=== PATIENT | male | born 1970 | race Caucasian/White ===

== ENCOUNTER 2016-12-04 17:34 | Observation (INO) | payer BC ==
[~2016-12-04] VITALS: Ht 182.9 cm; Wt 91.4 kg
[~2016-12-04 17:34] MED LIST: BENZ2 PO; CLON.5 PO; CLON1 PO; LITH150C7 PO; LITH300 PO; LOXA10 PO; LOXA5 PO; QUET200 PO; SERO300T PO
[2016-12-04 17:35] VITALS: BP 171/95; PULSE 64; RESP 18; TEMP 98.8; O2SAT 100
--- NOTE | 2016-12-04 17:47 | PD ---
Physical Exam Date Seen by Provider: Dec 04, 2016 Time Seen by Provider: 17:45 Narrative 46 YOWM C/O CP , ABD PAIN AND SOB TIMES 4 MONTHS WORSE FOR 2 WEEKS. NO MEDICAL PROBLEMS. H/O BIPOLAR. SEEN FH NSB FOR THE SAME 11/19/16 VS REVIEWED WAITING FOR BED PLACEMENT Data Data Last Documented VS Vital Signs Date Time Temp Pulse Resp B/P Pulse Ox O2 Delivery O2 Flow Rate FiO2 12/04/16 17:35 98.8 64 18 171/95 100 Room Air MDM Supervised Visit with JACKIE: Tye Rodriguez Dec 04, 2016 17:47
[2016-12-04] MEDS ORDERED: SODIUM CHLORID 0.9% 500 ML INJ 500 ML IV ONE (20:45)
[2016-12-04] MEDS ORDERED: LITH300T3 PO (21:01)
[2016-12-04] MEDS ORDERED: ZIPR1CAP12 PO (21:02)
[2016-12-04 21:05] VITALS: BP 143/86; PULSE 70; RESP 18; O2SAT 100
--- NOTE | 2016-12-04 21:07 | PD ---
HPI Chief Complaint: Chest Pain Time Seen by Provider: 20:37 Travel History International Travel<30 days: No Contact w/Intl Traveler<30days: No Traveled to known affect area: No History of Present Illness HPI patient c/o palpitations over last 4 days, along with continuous cp ,6/10, sharp , worse with movement, denies sob/n/v/d/hobson at this point....no alleviating factors. PFSH Past Medical History Asthma: No Anxiety: Yes (X 2 WEEKS) Cancer: No Cardiovascular Problems: No Diabetes: No Diminished Hearing: No Endocrine: No Genitourinary: No Immune Disorder: No Musculoskeletal: No Neurologic: No Psychiatric: Yes (BIPOLAR) Reproductive: No Respiratory: No Social History Alcohol Use: No Tobacco Use: No Substance Use: No Allergies-Medications (Allergen,Severity, Reaction): Coded Allergies: No Known Allergies (Unverified , 12/04/16) Reported Meds & Prescriptions Reported Meds & Active Scripts Active Reported Ziprasidone 80 Mg Cap 80 Mg PO DAILY [place] Carbonate 300 Mg Tab 300 Mg PO BID Review of Systems Except as stated in HPI: all other systems reviewed are Neg Cardiovascular: Positive: Chest Pain or Discomfort, Palpitations Physical Exam Narrative GENERAL: SKIN: Warm and dry. HEAD: Atraumatic. Normocephalic. EYES: Pupils equal and round. No scleral icterus. No injection or drainage. ENT: No nasal bleeding or discharge. Mucous membranes pink and moist. NECK: Trachea midline. No JVD. CARDIOVASCULAR: Regular rate and rhythm. RESPIRATORY: No accessory muscle use. Clear to auscultation. Breath sounds equal bilaterally. GASTROINTESTINAL: Abdomen soft, non-tender, nondistended. Hepatic and splenic margins not palpable. MUSCULOSKELETAL: Extremities without clubbing, cyanosis, or edema. No obvious deformities. complete reproducible chest sensation with chest palpation NEUROLOGICAL: Awake and alert. No obvious cranial nerve deficits. Motor grossly within normal limits. Five out of 5 muscle strength in the arms and legs. Normal speech. PSYCHIATRIC: Appropriate mood and affect; insight and judgment normal. Data Data Last Documented VS Orders Orders Electrocardiogram (12/04/16 17:47) B-Type Natriuretic Peptide (12/04/16 20:38) Complete Blood Count With Diff (12/04/16 20:38) Comprehensive Metabolic Panel (12/04/16 20:38) Prothrombin Time / Inr (Pt) (12/04/16 20:38) Act Partial Throm Time (Ptt) (12/04/16 20:38) Troponin I (12/04/16 20:38) Chest, Single Ap (12/04/16 20:38) Ecg Monitoring (12/04/16 20:38) Bilateral Bp Monitoring (12/04/16 20:38) Iv Access Insert/Monitor (12/04/16 20:38) Oximetry (12/04/16 20:38) Oxygen Administration (12/04/16 20:38) Sodium Chlorid 0.9% 500 Ml Inj (Ns 500 M (12/04/16 20:45) Drug Screen, Random Urine (12/04/16 20:38) Alcohol (Ethanol) (12/04/16 20:38) Salicylates (Aspirin) (12/04/16 20:38) Tylenol (Acetaminophen) (12/04/16 20:38) Ct Abd/Pel W/O Iv Contrast (12/04/16 23:03) Hydromorphone Pf Inj (Dilaudid Pf Inj) (12/04/16 23:15) Admit Order (Ed Use Only) (12/04/16 23:53) Labs Laboratory Tests Test 12/04/16 21:08 12/04/16 21:20 White Blood Count 11.6 TH/MM3 Red Blood Count 4.89 MIL/MM3 Hemoglobin 14.7 GM/DL Hematocrit 42.8 % Mean Corpuscular Volume 87.5 FL Mean Corpuscular Hemoglobin 30.2 PG Mean Corpuscular Hemoglobin Concent 34.5 % Red Cell Distribution Width 13.2 % Platelet Count 247 TH/MM3 Mean Platelet Volume 7.6 FL Neutrophils (%) (Auto) 69.3 % Lymphocytes (%) (Auto) 22.1 % Monocytes (%) (Auto) 6.8 % Eosinophils (%) (Auto) 1.4 % Basophils (%) (Auto) 0.4 % Neutrophils # (Auto) 8.0 TH/MM3 Lymphocytes # (Auto) 2.6 TH/MM3 Monocytes # (Auto) 0.8 TH/MM3 Eosinophils # (Auto) 0.2 TH/MM3 Basophils # (Auto) 0.0 TH/MM3 CBC Comment DIFF FINAL Differential Comment Prothrombin Time 10.6 SEC Prothromb Time International Ratio 1.0 RATIO Activated Partial Thromboplast Time 23.9 SEC Blood Urea Nitrogen 17 MG/DL Creatinine 1.33 MG/DL Random Glucose 97 MG/DL Total Protein 7.4 GM/DL Albumin 4.0 GM/DL Calcium Level 9.2 MG/DL Alkaline Phosphatase 64 U/L Aspartate Amino Transf (AST/SGOT) 14 U/L Alanine Aminotransferase (ALT/SGPT) 21 U/L Total Bilirubin 0.5 MG/DL Sodium Level 139 MEQ/L Potassium Level 3.9 MEQ/L Chloride Level 105 MEQ/L Carbon Dioxide Level 25.7 MEQ/L Anion Gap 8 MEQ/L Estimat Glomerular Filtration Rate 58 ML/MIN Troponin I LESS THAN 0.02 NG/ML B-Type Natriuretic Peptide 5 PG/ML Salicylates Level LESS THAN 1.7 MG/DL Acetaminophen Level LESS THAN 2.0 MCG/ML Ethyl Alcohol Level LESS THAN 3 MG/DL Urine Opiates Screen NEG Urine Barbiturates Screen NEG Urine Amphetamines Screen NEG Urine Benzodiazepines Screen NEG Urine Cocaine Screen NEG Urine Cannabinoids Screen NEG MDM Medical Decision Making Medical Screen Exam Complete: Yes Emergency Medical Condition: Yes Medical Record Reviewed: Yes Differential Diagnosis STEMI V NONSTEMI V PNA V ATYPICAL CP Narrative Course PATIENT LABS WERE WNL, CXR NONDIAGNOSTIC...PT WILL BE ADMITTED FOR CHEST PAIN CENTER. Diagnosis Primary Impression: Chest pain, atypical Additional Impression: Palpitations Admitting Information Admitting Physician Requests: Observation Scripts Pantoprazole (Protonix) 40 Mg Tab 40 MG PO DAILY for Reflux, #30 TAB 0 Refills Prov: Jay Cheek 12/05/16 Favian Strong MD Dec 04, 2016 21:07
--- NOTE | 2016-12-04 21:31 | RADRPT ---
EXAM DATE/TIME: 12/04/2016 20:48 [facility] COMPARISON: No previous studies available for comparison. INDICATIONS : Heart palpitations, chest pain and shortness of breath. MEDICAL HISTORY : None. SURGICAL HISTORY : None. ENCOUNTER: Initial ACUITY: 2 weeks PAIN SCORE: 10/10 LOCATION: Bilateral chest FINDINGS: A single view of the chest demonstrates the lungs to be symmetrically aerated without evidence of mas s, infiltrate or effusion. The cardiomediastinal contours are unremarkable. Osseous structures are intact. CONCLUSION: No acute disease. Good Haile MD on December 04, 2016 at 21:29 Board Certified Radiologist. This report was verified electronically.
[2016-12-04 21:50] LABS: BASOPHIL % 0.4 % (0.0-2.0); EOSINOPHIL # 0.2 TH/MM3 (0-0.4); EOSINOPHIL % 1.4 % (0.0-4.0); HEMATOCRIT 42.8 % (39.0-51.0); HEMO FLAGS DIFF FINAL; LYMPH % 22.1 % (9.0-44.0); LYMPHOCYTE # 2.6 TH/MM3 (1.0-4.8); MEAN CELL VOLUME 87.5 FL (80.0-100.0); MEAN CORPUSCULAR HEMOGLOBIN 30.2 PG (27.0-34.0); MEAN CORPUSCULAR HGB CONC 34.5 % (32.0-36.0); MONO % 6.8 % (0.0-8.0); NEUT % 69.3 % (16.0-70.0); PLATELET COUNT 247 TH/MM3 (150-450); RED BLOOD COUNT 4.89 MIL/MM3 (4.50-5.90); RED CELL DISTRIBUTION WIDTH 13.2 % (11.6-17.2); WHITE BLOOD COUNT 11.6 TH/MM3 (4.0-11.0)
[2016-12-04 21:56] LABS: APTT (PATIENT) 23.9 SEC (24.3-30.1); PROTHROMBIN TIME - PATIENT 10.6 SEC (9.8-11.6)
[2016-12-04 21:58] LABS: ANION GAP 8 MEQ/L (5-15); AST (GOT) 14 U/L (15-37); BICARBONATE 25.7 MEQ/L (21.0-32.0); BLOOD UREA NITROGEN 17 MG/DL (7-18); CHLORIDE 105 MEQ/L (98-107); GLOMERULAR FILTRATION RATE 58 ML/MIN (>89); POTASSIUM 3.9 MEQ/L (3.5-5.1); SODIUM (NA) 139 MEQ/L (136-145)
[2016-12-04 21:59] LABS: ALT (GPT) 21 U/L (12-78)
[2016-12-04 22:02] LABS: ALCOHOL LESS THAN 3 MG/DL (0-5)
[2016-12-04 22:03] LABS: ALKALINE PHOSPHATASE 64 U/L (45-117); TOTAL BILIRUBIN ADULT 0.5 MG/DL (0.2-1.0)
[2016-12-04 22:08] LABS: ACETAMINOPHEN LESS THAN 2.0 MCG/ML (10.0-30.0)
[2016-12-04 23:15] VITALS: BP 144/87; PULSE 64; RESP 16; O2SAT 100
[2016-12-04] MEDS ORDERED: HYDROmorphone HCL PF 1 MG/ML VIAL IV PUSH ONE (23:15)
--- NOTE | 2016-12-04 23:40 | RADRPT ---
EXAM DATE/TIME: 12/04/2016 23:16 [facility] COMPARISON: No previous studies available for comparison. INDICATIONS : Bilateral lower quadrant pain. ORAL CONTRAST: No oral contrast ingested. RADIATION DOSE: 9.96 CTDIvol (mGy) MEDICAL HISTORY : None SURGICAL HISTORY : None. ENCOUNTER: Initial ACUITY: 2 days PAIN SCALE: 6/10 LOCATION: Bilateral lower quadrant TECHNIQUE: Volumetric scanning of the abdomen and pelvis was performed. Using automated exposure control and ad justment of the mA and/or kV according to patient size, radiation dose was kept as low as reasonably achievable to obtain optimal diagnostic quality images. DICOM format image data is available electro nically for review and comparison. FINDINGS: LOWER LUNGS: The visualized lower lungs are clear. LIVER: Homogeneous density without lesion for noncontrast technique. There is no dilation of the biliary tr ee. No calcified gallstones. SPLEEN: Normal size without lesion. PANCREAS: Within normal limits. KIDNEYS: Normal in size and shape. There is no mass, stone, or hydronephrosis. ADRENAL GLANDS: Within normal limits. VASCULAR: There is no aortic aneurysm. BOWEL/MESENTERY: No dilated loops of small or large bowel. The appendix is identified in the right lower quadrant has a normal configuration. No evidence of free fluid. ABDOMINAL WALL: Small fat containing umbilical hernia. RETROPERITONEUM: There is no lymphadenopathy. BLADDER: Mildly distended. No wall thickening or mass. REPRODUCTIVE: Within normal limits. INGUINAL: There is no lymphadenopathy or hernia. MUSCULOSKELETAL: Within normal limits for patient age. CONCLUSION: Negative noncontrast CT abdomen/pelvis. Armando Welsh MD on December 04, 2016 at 23:37 Board Certified Radiologist. This report was verified electronically.
[2016-12-05] VITALS: BP 175/95; PULSE 56; RESP 20; O2SAT 100
[2016-12-05] MEDS ORDERED: ENOXAPARIN SODIUM 30 MG/0.3 ML SYRINGE SQ SCH
[2016-12-05] MEDS ORDERED: MORPHINE SULFATE 4 MG/ML INJ IV PRN
[2016-12-05] MEDS ORDERED: ONDANSETRON HCL 4 MG/2 ML VIAL IV PRN
[2016-12-05] MEDS ORDERED: NITROGLYCERIN 0.4 MG SL 25 TABS/BTL SL PRN
[2016-12-05 00:03] VITALS: O2SAT 100
[2016-12-05] MEDS: SODIUM CHLOR 0.9% 1000 ML INJ 1,000 ML IV SCH ×2 (01:42→10:43)
[2016-12-05 01:59] LABS: CREATINE KINASE 50 U/L (39-308)
[2016-12-05 02:00] VITALS: BP 166/90; PULSE 60; RESP 18; O2SAT 98
[2016-12-05 04:00] VITALS: BP 143/86; PULSE 60; RESP 19; O2SAT 96
[2016-12-05 05:31] VITALS: BP 155/90; PULSE 64; RESP 18; O2SAT 98
[2016-12-05 06:06] LABS: CREATINE KINASE 49 U/L (39-308)
[2016-12-05 07:10] VITALS: BP 151/96; PULSE 68; RESP 21; O2SAT 98
[2016-12-05] MEDS ORDERED: ASPIRIN 325 MG TAB PO SCH (09:00)
[2016-12-05] MEDS ORDERED: LITHIUM CARBONATE 300 MG TAB PO SCH (10:00)
[2016-12-05] MEDS ORDERED: ZIPRASIDONE HCL 80 MG CAP PO SCH (10:00)
[2016-12-05] MEDS ORDERED: PROT40TA PO (11:35)
--- NOTE | 2016-12-05 11:36 | HHI.DCPOC ---
Discharge Care Plan Diagnosis: (1) Chest pain, atypical (2) GERD (gastroesophageal reflux disease) (3) Bipolar disorder Goals to Promote Your Health * To prevent worsening of your condition and complications * To maintain your health at the optimal level Directions to Meet Your Goals Take your medications as prescribed Follow your dietary instruction Follow activity as directed Keep your appointments as scheduled Take your immunizations and boosters as scheduled If your symptoms worsen call your PCP, if no PCP go to Urgent Care Center or Emergency Room Smoking is Dangerous to Your Health. Avoid second hand smoke Call the 24-hour hour crisis hotline for domestic abuse at Jay Cheek Dec 05, 2016 11:36
--- NOTE | 2016-12-05 14:51 | TR ---
Date Performed: 12/05/2016 Time Performed: 10:53:25 DOCTOR: Adonis Arteaga DRUG LIST: CLINICAL HISTORY: REASON FOR TEST: REASON FOR ENDING: OBSERVATION: CONCLUSION: Maykel protocol performed, test stopped when target heart rate reached secondary to l eg fatigue. No reproduc chest discomfort. No ST segment changes to suggest ischemia. No ectopy. Recov ered quickly, BP and HR at baseline.Maximum FZ=387 Target HR Achieved=87.0% Maximum BA=425/84 Total E xercise Time=5:01 COMMENTS: Conclusion: Normal treadmill exercise. No evidence of ischemia.
--- NOTE | 2016-12-05 14:59 | EKG ---
Date Performed: 12/05/2016 Time Performed: 05:25:00 PTAGE: 46 years EKG: Sinus rhythm MODERATE INTRAVENTRICULAR CONDUCTION DELAY BORDERLINE ECG PREVIOUS TRACING : 12/05/2016 01.10 Since previous tracing, no significant change noted DOCTOR: Adonis Arteaga Interpretating Date/Time 12/06/2016 08:10:19
--- NOTE | 2016-12-05 15:04 | EKG ---
Date Performed: 12/05/2016 Time Performed: 01:10:21 PTAGE: 46 years EKG: SINUS BRADYCARDIA LEFT POSTERIOR FASCICULAR BLOCK NONSPECIFIC ST & T-WAVE ABNORMALITY ABNOR MAL ECG PREVIOUS TRACING : 12/05/2016 01.09 Since previous tracing, no significant change noted DOCTOR: Adonis Arteaga Interpretating Date/Time 12/05/2016 15:02:39
--- NOTE | 2016-12-05 15:14 | EKG ---
Date Performed: 12/04/2016 Time Performed: 18:05:21 PTAGE: 46 years EKG: Sinus rhythm MODERATE INTRAVENTRICULAR CONDUCTION DELAY BORDERLINE ECG PREVIOUS TRACING : 11/04/2011 20.15 Since previous tracing, no significant change noted DOCTOR: Adonis Arteaga Interpretating Date/Time 12/05/2016 15:13:30
--- NOTE | 2016-12-05 15:20 | HHI.HP ---
[facility] Primary Care Physician Sly Georges MD Chief Complaint Chest pain History of Present Illness This is a 46-year-old male that presents to the ED with a complaint of 4 months of intermittent chest pressure. He states that over the last couple weeks it has become more frequent. He states he estimates that this occurred at least on her times a day each lasting about a minute. Occasional shortness of breath and diaphoresis. Denies nausea. He has not discussed this discomfort with his PCP. Currently feeling okay. Denies recent illness. Denies recent travel. Voices compliance with his bipolar medications. States is a lifetime nonsmoker. Review of Systems General: Patient denies fevers, chills recent, and recent travel HEENT: Patient denies headache, sore throat, difficulty swallowing. Cardiovascular: Has the chest discomfort as mentioned above. Denies sensation of heart beating rapidly or irregularly. No syncope. Occasional diaphoresis. Respiratory: Occasional shortness of breath. Denies inspirational chest discomfort. Denies coughing wheezing or hemoptysis. GI: Patient denies nausea, vomiting, diarrhea, abdominal pain, bloody stools. Musculoskeletal: Patient denies joint pain or edema. Denies calf pain or edema. Neurovascular: Patient denies numbness, tingling, weakness in extremities. Denies headache. Endocrine: Denies polyuria and polydipsia. Hematologic: Denies easy bruising. Skin: Denies rash or itching. Past Family Social History Allergies: Coded Allergies: No Known Allergies (Unverified , 12/04/16) Past Medical History Bipolar disorder. Denies hypertension, hyperlipidemia, diabetes, and CAD. Past Surgical History Noncontributory. Reported Medications Reported Meds & Active Scripts Active Protonix (Pantoprazole Sodium) 40 Mg Tab 40 Mg PO DAILY Reported Ziprasidone 80 Mg Cap 80 Mg PO DAILY [place] Carbonate 300 Mg Tab 300 Mg PO BID Family History Denies family history of CAD. Social History States he is a lifetime nonsmoker. Denies alcohol or drug abuse. Physical Exam Vital Signs Vital Signs Date Time Temp Pulse Resp B/P Pulse Ox O2 Delivery O2 Flow Rate FiO2 12/05/16 07:10 68 21 151/96 98 Room Air 12/05/16 05:31 64 18 155/90 98 Room Air 12/05/16 04:00 60 19 143/86 96 Room Air 12/05/16 02:00 60 18 166/90 98 Room Air 12/05/16 00:03 100 12/05/16 00:00 56 20 175/95 100 Room Air 12/04/16 23:15 64 16 144/87 100 Room Air 12/04/16 21:05 100 Room Air 12/04/16 21:05 70 18 143/86 100 Room Air 12/04/16 21:05 100 Room Air 12/04/16 17:35 98.8 64 18 171/95 100 Room Air Physical Exam GENERAL: This is a well-nourished, well-developed patient, in no apparent distress. Patient speaks in clear complete sentences. Patient is pleasant. HEENT: Head is atraumatic and normocephalic. Neck is supple without lymphadenopathy and trachea is midline. No JVD or carotid bruits. CARDIOVASCULAR: Regular rate and rhythm without murmurs, gallops, or rubs. RESPIRATORY: Clear to auscultation. Breath sounds equal bilaterally. No wheezes , rales, or rhonchi. Chest wall is tender. No use of accessory muscles. GASTROINTESTINAL: Abdomen is nontender, nondistended. Abdomen soft. No obvious pulsatile mass or bruit. No CVA tenderness. Strong femoral pulses bilaterally. Normal bowel sounds in all quadrants. MUSCULOSKELETAL: Patient is moving upper and lower extremities freely. No calf tenderness or edema, no Homans sign. Strong pulses in upper and lower extremities. NEUROLOGICAL: Patient is alert and oriented. Cranial nerves 2-12 are grossly intact. No focal deficits and speech is clear. SKIN: No rash and turgor is normal. Laboratory Laboratory Tests Test 12/04/16 12/04/16 12/05/16 12/05/16 21:08 21:20 01:15 05:02 White Blood Count 11.6 Red Blood Count 4.89 Hemoglobin 14.7 Hematocrit 42.8 Mean Corpuscular Volume 87.5 Mean Corpuscular Hemoglobin 30.2 Mean Corpuscular Hemoglobin 34.5 Concent Red Cell Distribution Width 13.2 Platelet Count 247 Mean Platelet Volume 7.6 Neutrophils (%) (Auto) 69.3 Lymphocytes (%) (Auto) 22.1 Monocytes (%) (Auto) 6.8 Eosinophils (%) (Auto) 1.4 Basophils (%) (Auto) 0.4 Neutrophils # (Auto) 8.0 Lymphocytes # (Auto) 2.6 Monocytes # (Auto) 0.8 Eosinophils # (Auto) 0.2 Basophils # (Auto) 0.0 CBC Comment DIFF FINAL Differential Comment Prothrombin Time 10.6 Prothromb Time International 1.0 Ratio Activated Partial 23.9 Thromboplast Time Sodium Level 139 Potassium Level 3.9 Chloride Level 105 Carbon Dioxide Level 25.7 Anion Gap 8 Blood Urea Nitrogen 17 Creatinine 1.33 Estimat Glomerular Filtration 58 Rate Random Glucose 97 Calcium Level 9.2 Total Bilirubin 0.5 Aspartate Amino Transf 14 (AST/SGOT) Alanine Aminotransferase 21 (ALT/SGPT) Alkaline Phosphatase 64 Troponin I LESS THAN 0.02 LESS THAN 0.02 LESS THAN 0.02 B-Type Natriuretic Peptide 5 Total Protein 7.4 Albumin 4.0 Salicylates Level LESS THAN 1.7 Acetaminophen Level LESS THAN 2.0 Ethyl Alcohol Level LESS THAN 3 Urine Opiates Screen NEG Urine Barbiturates Screen NEG Urine Amphetamines Screen NEG Urine Benzodiazepines Screen NEG Urine Cocaine Screen NEG Urine Cannabinoids Screen NEG Total Creatine Kinase 50 49 Result Diagram: 12/04/16210712/04/162107 Imaging Last 24 hours Impressions Abdomen/Pelvis CT 12/04/162302 Signed Impressions: Service Date/Time: Sunday, December 04, 2016 23:16 - CONCLUSION: Negative noncontrast CT abdomen/pelvis. Armando Welsh MD Chest X-Ray 12/04/162037 Signed Impressions: Service Date/Time: Sunday, December 04, 2016 20:48 - CONCLUSION: No acute disease. Good Haile MD Course EKGs have sinus rhythm without significant ST segment depressions or elevations. Assessment and Plan Assessment and Plan * Atypical chest pain: Patient had serial cardiac enzymes and EKGs for ruling out purposes. He was seen by Dr. Arteaga of cardiology in the chest pain center and had a nonischemic Maykel protocol ETT. He'll be discharged home with instructions to follow-up with PCP. * Bipolar disorder: Continue current medication. Patient is stable at this time. He is agreeable to this plan. Jay Cheek Dec 05, 2016 15:20
== END 2016-12-05 12:59 | disposition home or self-care (01) ==
LOC: NEPC 17:34 → NEDA 23:54 → NEDH 12-05 03:54 → NEPHCDU 12-05 09:55
PROVIDERS: ADMIT Internal Medicine Cardiovascular Disease; ATTEND Internal Medicine Cardiovascular Disease
DX: R07.89 Other chest pain (principal); F31.9 Bipolar disorder, unspecified; R00.2 Palpitations; I44.5 Left posterior fascicular block; R06.02 Shortness of breath; K21.9 Gastro-esophageal reflux disease without esophagitis; R00.1 Bradycardia, unspecified; Z79.899 Other long term (current) drug therapy
CPT/HCPCS: 71010; 74176; 80053; 80307; 82550; 83880; 84484; 85025; 85610; 85730; 93005; 93017; 96361; 96374; 96375; 99285; G0378; J1170; J1650; J2270; J2405; J7030; J7040

== ENCOUNTER 2016-12-24 08:33 | Emergency (ER) | payer BC ==
[~2016-12-24 08:33] MED LIST changes: -AMPICILLIN/SULBAC 3 GM/NS 100 ML IV SCH; -BACITRACIN TOP OINT 15 GM TUBE ONE; -CHLORHEXIDINE GLUCONATE 2 % 1 PACK (2 CLOTHS) TOPICAL PRN; -INSULIN HUMAN REGULAR 1,000 UNITS/10 ML VIAL SQ PRN; -LACTATED RINGER'S 1000 ML IV PRN; -METOPROLOL TARTRATE 25 MG TAB PO PRN; -OXYMETAZOLINE HCL 0.05% 15 ML NASAL SPRAY ONE; -POVIDONE IODINE 5% (ANTISEPSIS KIT) 4 APPLICATIONS EACH NARE PRN; -SODIUM CHLORID 0.9% 500 ML IV PRN
[2016-12-24 08:36] VITALS: BP 169/94; PULSE 55; RESP 18; TEMP 98.3; O2SAT 100
--- NOTE | 2016-12-24 08:43 | PD ---
HPI Chief Complaint: Chest Pain Time Seen by Provider: 08:36 Travel History International Travel<30 days: No Contact w/Intl Traveler<30days: No Traveled to known affect area: No History of Present Illness HPI 46yo M with PMH of bipolar disorder was sent here from ambulatory surgery by anesthesiologist Dr. Garcia for evaluation of chest pain. Pt is suppose to have an ENT procedure for his sinuses and had complained of left sided chest pain. Pt thinks it is his anxiety or reflux and was nervous. Pain is nonradiating and associated with mild sob. Said he had this pain for weeks. Denies any fever, cough, n/v, abdominal pain, focal weakness or numbness. Pt was recently evaluated in chest pain center on 12/05/16 for atypical chest pain by Dr. Arteaga. Had negative enzymes and negative stress test 12/05/16. PFSH Past Medical History Asthma: No Bipolar Disorder: Yes Anxiety: Yes (X 2 WEEKS) Cancer: No Cardiovascular Problems: No Diabetes: No Diminished Hearing: No Endocrine: No Gastrointestinal Disorders: No Genitourinary: No Immune Disorder: No Musculoskeletal: No Neurologic: No Psychiatric: Yes (BIPOLAR) Reproductive: No Respiratory: No ?: Not Social History Alcohol Use: No Tobacco Use: No Substance Use: No Allergies-Medications (Allergen,Severity, Reaction): Coded Allergies: No Known Allergies (Unverified , 12/24/16) Reported Meds & Prescriptions Reported Meds & Active Scripts Active Reported Ziprasidone 80 Mg Cap 80 Mg PO DAILY [place] Carbonate 300 Mg Tab 300 Mg PO BID Review of Systems Except as stated in HPI: all other systems reviewed are Neg Physical Exam Narrative GENERAL: 46yo M not in distress. SKIN: Focused skin assessment warm/dry. HEAD: Atraumatic. Normocephalic. EYES: Pupils equal and round. No scleral icterus. No injection or drainage. ENT: No nasal bleeding or discharge. Mucous membranes pink and moist. NECK: Trachea midline. No JVD. CARDIOVASCULAR: Regular rate and rhythm. No murmur appreciated. RESPIRATORY: No accessory muscle use. Clear to auscultation. Breath sounds equal bilaterally. GASTROINTESTINAL: Abdomen soft, non-tender, nondistended. No rebound tenderness or guarding. MUSCULOSKELETAL: No obvious deformities. No clubbing. No cyanosis. No edema. NEUROLOGICAL: Awake and alert. No obvious cranial nerve deficits. Motor grossly within normal limits. Normal speech. PSYCHIATRIC: Appropriate mood and affect; insight and judgment normal. Data Data Last Documented VS Vital Signs Date Time Temp Pulse Resp B/P (MAP) Pulse Ox O2 Delivery O2 Flow Rate FiO2 12/24/16 08:43 56 12/24/16 08:36 98.3 18 169/94 (119) 100 Orders Orders Basic Metabolic Panel (Bmp) (12/24/16 08:45) Complete Blood Count With Diff (12/24/16 08:45) Troponin I (12/24/16 08:45) Chest, Single Ap (12/24/16 ) Pantoprazole (Protonix) (12/24/16 09:00) Labs Laboratory Tests Test 12/24/16 08:50 White Blood Count 8.4 TH/MM3 Red Blood Count 5.04 MIL/MM3 Hemoglobin 15.6 GM/DL Hematocrit 45.7 % Mean Corpuscular Volume 90.6 FL Mean Corpuscular Hemoglobin 30.9 PG Mean Corpuscular Hemoglobin Concent 34.1 % Red Cell Distribution Width 13.1 % Platelet Count 230 TH/MM3 Mean Platelet Volume 7.1 FL Neutrophils (%) (Auto) 68.2 % Lymphocytes (%) (Auto) 23.0 % Monocytes (%) (Auto) 5.7 % Eosinophils (%) (Auto) 2.6 % Basophils (%) (Auto) 0.5 % Neutrophils # (Auto) 5.8 TH/MM3 Lymphocytes # (Auto) 1.9 TH/MM3 Monocytes # (Auto) 0.5 TH/MM3 Eosinophils # (Auto) 0.2 TH/MM3 Basophils # (Auto) 0.0 TH/MM3 CBC Comment DIFF FINAL Differential Comment Blood Urea Nitrogen 15 MG/DL Creatinine 1.20 MG/DL Random Glucose 98 MG/DL Calcium Level 9.9 MG/DL Sodium Level 141 MEQ/L Potassium Level 4.1 MEQ/L Chloride Level 107 MEQ/L Carbon Dioxide Level 25.9 MEQ/L Anion Gap 8 MEQ/L Estimat Glomerular Filtration Rate 65 ML/MIN Troponin I LESS THAN 0.02 NG/ML [facility] Medical Decision Making Medical Screen Exam Complete: Yes Emergency Medical Condition: Yes Interpretation(s) EKG: Sinus bradycardia at 56bpm. Normal axis. No ST segment elevation or depression. Differential Diagnosis Anxiety vs. GERD vs. atypical chest pain Narrative Course 46yo M with PMH of bipolar disorder sent here by ambulatory surgery for evaluation of atypical chest pain. Do not feel that it is cardiac. Pt given protonix with improvement of pain. Currently denies any chest pain. Labs reviewed, no leukocytosis. Troponin negative. CXR negative. Pt had recent negative stress test last month. Return precautions given. Diagnosis Primary Impression: Chest pain, atypical Patient Instructions: General Instructions Departure Forms: Tests/Procedures Additional Instructions: Please follow up with your primary care physician in 3-7 days. Return to the ED if symptoms worsen. Med/Other Pt SpecificInfo: No Change to Meds Disposition: 01 DISCHARGE HOME Condition: Stable CatLupeLibia DO Dec 24, 2016 08:43
[2016-12-24 08:56] LABS: AUTOMATED NEUTROPHIL # 5.8 TH/MM3 (1.8-7.7); BASOPHIL % 0.5 % (0.0-2.0); EOSINOPHIL # 0.2 TH/MM3 (0-0.4); EOSINOPHIL % 2.6 % (0.0-4.0); HEMATOCRIT 45.7 % (39.0-51.0); HEMO FLAGS DIFF FINAL; LYMPHOCYTE # 1.9 TH/MM3 (1.0-4.8); MEAN CELL VOLUME 90.6 FL (80.0-100.0); MEAN CORPUSCULAR HEMOGLOBIN 30.9 PG (27.0-34.0); MEAN CORPUSCULAR HGB CONC 34.1 % (32.0-36.0); MONO % 5.7 % (0.0-8.0); NEUT % 68.2 % (16.0-70.0); PLATELET COUNT 230 TH/MM3 (150-450); RED BLOOD COUNT 5.04 MIL/MM3 (4.50-5.90); RED CELL DISTRIBUTION WIDTH 13.1 % (11.6-17.2); WHITE BLOOD COUNT 8.4 TH/MM3 (4.0-11.0)
[2016-12-24] MEDS ORDERED: PANTOPRAZOLE SOD 40 MG DELAYED RELEASE TAB PO ONE (09:00)
[2016-12-24 09:04] LABS: CHLORIDE 107 MEQ/L (98-107); POTASSIUM 4.1 MEQ/L (3.5-5.1); SODIUM (NA) 141 MEQ/L (136-145)
[2016-12-24 09:07] LABS: ANION GAP 8 MEQ/L (5-15); BICARBONATE 25.9 MEQ/L (21.0-32.0); BLOOD UREA NITROGEN 15 MG/DL (7-18)
[2016-12-24 09:10] LABS: GLOMERULAR FILTRATION RATE 65 ML/MIN (>89)
--- NOTE | 2016-12-24 09:19 | RADRPT ---
EXAM DATE/TIME: 12/24/2016 09:05 [facility] COMPARISON: CHEST SINGLE AP, December 04, 2016, 20:48. INDICATIONS : Chest pain, short of breath. MEDICAL HISTORY : Gastroesophageal reflux disease. SURGICAL HISTORY : None. ENCOUNTER: Initial ACUITY: 1 day PAIN SCORE: 2/10 LOCATION: Bilateral chest FINDINGS: A single view of the chest demonstrates the lungs to be symmetrically aerated without evidence of mas s, infiltrate or effusion. The cardiomediastinal contours are unremarkable. Osseous structures are intact. CONCLUSION: 1. No acute cardiopulmonary disease. Ruben Feliciano MD on December 24, 2016 at 9:17 Board Certified Radiologist. This report was verified electronically.
[2016-12-24 09:39] VITALS: BP 135/72
== END 2016-12-24 09:46 | disposition home or self-care (01) ==
LOC: PHED 08:33
DX: R07.89 Other chest pain (principal)
CPT/HCPCS: 71010; 80048; 84484; 85025; 99284

== ENCOUNTER → 2016-12-24 | Day surgery (SDC) | payer BC ==
[~2016-12-24] VITALS: Ht 182.9 cm; Wt 92.5 kg
[~2016-12-24] MED LIST changes: +AMPICILLIN/SULBAC 3 GM/NS 100 ML IV SCH; +BACITRACIN TOP OINT 15 GM TUBE ONE; -BENZ2 PO; +CHLORHEXIDINE GLUCONATE 2 % 1 PACK (2 CLOTHS) TOPICAL PRN; -CLON.5 PO; -CLON1 PO; +INSULIN HUMAN REGULAR 1,000 UNITS/10 ML VIAL SQ PRN; +LACTATED RINGER'S 1000 ML IV PRN; -LITH150C7 PO; -LITH300 PO; +LITH300T3 PO; -LOXA10 PO; -LOXA5 PO; +METOPROLOL TARTRATE 25 MG TAB PO PRN; +OXYMETAZOLINE HCL 0.05% 15 ML NASAL SPRAY ONE; +POVIDONE IODINE 5% (ANTISEPSIS KIT) 4 APPLICATIONS EACH NARE PRN; +PROT40TA PO; -QUET200 PO; -SERO300T PO; +SODIUM CHLORID 0.9% 500 ML IV PRN; +ZIPR1CAP12 PO
[2016-12-24 07:15] VITALS: BP 154/96; PULSE 60; RESP 16; TEMP 97; O2SAT 99
--- NOTE | 2016-12-25 14:45 | EKG ---
Date Performed: 12/24/2016 Time Performed: 08:07:07 PTAGE: 46 years EKG: Normal Sinus rhythm Slight nonspecific intraventricular conduction delay PREVIOUS TRACING 12/05/16 No significant change from the prior tracing. DOCTOR: Rico De La Cruz Interpretating Date/Time 12/25/2016 14:42:56
== END | disposition home or self-care (01) ==
LOC: PHSDC 06:41
PROVIDERS: ATTEND Otolaryngology
DX: J32.9 Chronic sinusitis, unspecified (principal); Z53.9 Procedure and treatment not carried out, unspecified reason; Z01.810 Encounter for preprocedural cardiovascular examination
CPT/HCPCS: 93005; 99211; J7120; G0463